=== PATIENT | male | born 1950 | race Caucasian/White ===

== ENCOUNTER 2017-11-22 19:01 | Emergency (ER) | payer SELFPAY ==
[~2017-11-22] VITALS: Ht 170.2 cm; Wt 79.4 kg
[2017-11-22 19:04] VITALS: Ht 170.2 cm; Wt 79.4 kg
[2017-11-22 19:38] LABS: BASOPHIL % 0.9 % (0-2); PLATELET COUNT 240 x10^3mcL (130-400); RED CELL DISTRIBUTION WIDTH 14.4 % (11.5-14.5)
[2017-11-22 19:49] LABS: CHLORIDE SERUM 107 mmol/L (98-107); CREATININE SERUM 1.1 mg/dL (0.7-1.3); GFR1 > 60 mL/min; GLUCOSE SERUM 111 mg/dL (74-106); POTASSIUM SERUM 3.5 mmol/L (3.5-5.1); SODIUM SERUM 140 mmol/L (136-145)
[2017-11-22 19:51] LABS: ALBUMIN 3.6 g/dL (3.4-5.0); ALKALINE PHOSPHATASE 79 U/L (46-116); ALT/SGPT 54 U/L (16-63); AMYLASE 61 U/L (25-115); AST/SGOT 35 U/L (15-37); BILIRUBIN TOTAL 0.3 mg/dL (0.20-1.00); LIPASE 170 IU/L (73-393); TOTAL PROTEIN, SERUM 7.4 g/dL (6.4-8.2)
[2017-11-22 20:16] LABS: microscopic required? NO
[2017-11-22 20:24] LABS: urine erythrocyte NEGATIVE (NEGATIVE)
[2017-11-22 20:30] VITALS: BP 139/84
== END 2017-11-22 20:30 | disposition home or self-care (01) ==
LOC: ED 19:01
PROVIDERS: Specialist
DX: N43.2 Other hydrocele (principal)
CPT/HCPCS: 36415; 83880; J1885